=== PATIENT | male | born 1975 | race Caucasian/White ===

== ENCOUNTER 2020-08-23 18:00 | Emergency (ER) | payer MEDICAID ==
[~2020-08-23] VITALS: Ht 165.1 cm; Wt 81.6 kg
--- NOTE | 2020-08-23 18:00 | NUR ---
Patient BIBA ALS, transferred to bed 7. RN evaluating patient at bedside.
--- NOTE | 2020-08-23 18:05 | NUR ---
44 YO M BIBA FOR C/C OF 10 LAC TO R FOREARM X30 MIN. PT STATES HE WAS RUNNING FROM AN UNKNOWN DOG WHEN HIS ARM GOT CAUGHT ON AN UNKNOWN METAL OBJECT. ROM IN HAND INTACT, RADIAL PULSES ARE EQUAL AND REGULAR. PT UNSURE OF WHEN LAST TETNUS SHOT WAS. PT RECIEVED 100MCG OF FENTANYL IM IN ROUTE. BED LOCKED AND IN LOWEST POSITION, SIDE RAILS X2. MED HX: DENIES RX: DENIES NKA
[2020-08-23 18:07] VITALS: BP 151/104
[2020-08-23] MEDS ORDERED: MORPHINE SULFATE 4 MG/ML SYR ONE (18:17)
[2020-08-23] MEDS ORDERED: MORPHINE SULFATE 4 MG/ML SYR IM ONE (18:20)
[2020-08-23] MEDS ORDERED: BACITRACIN OINT 500 UNITS/GM PKT TP ONE ×2 (18:25→19:36)
[2020-08-23] MEDS ORDERED: LIDOCAINE/EPI 1% 1:100000 20 ML VIAL INJ ONE (18:30)
--- NOTE | 2020-08-23 19:00 | NUR ---
T VILMA OBTAINED FOR PT. INFORMATION STATEMENT GIVEN.
--- NOTE | 2020-08-23 19:07 | NUR ---
LIDOCAINE AND BACITRACIN AT BEDSIDE FOR LAC REPAIR
--- NOTE | 2020-08-23 19:07 | NUR ---
PTS PAIN IS NOW 5/10 POST IM MORPHINE
--- NOTE | 2020-08-23 19:18 | NUR ---
REPORT GIVEN TO ONUR PERKINS. TRANSFER OF CARE AT THIS TIME.
--- NOTE | 2020-08-23 19:18 | NUR ---
RECEIVED REPORT FROM ONUR BURK. TRANSFER OF CARE AT THIS TIME.
--- NOTE | 2020-08-23 19:46 | NUR ---
RAD AT BEDSIDE
--- NOTE | 2020-08-23 19:47 | NUR ---
Viky ramirez in ED - 08/23/20 at 1947 by [email or web address] XINAY AT BEDSIDE
--- NOTE | 2020-08-23 20:20 | NUR ---
BACITRACIN WAS PLACED ON PTS RIGHT ARM WOUND, NON ADHERRNT GAUZE PLACED TO COVER WOUND AND NON ADHERENT GAUZE TO WRAP.
[2020-08-23 21:36] VITALS: BP 151/104
--- NOTE | 2020-08-23 21:36 | NUR ---
Patient discharged with v/s stable. Written and verbal after care instructions given and explained. Patient verbalized understanding. Ambulatory with steady gait. All questions addressed prior to discharge. Advised to follow up with PMD.
== END 2020-08-23 20:30 | disposition home or self-care (01) ==
LOC: MED 18:00
DX: S51.811A Laceration without foreign body of right forearm, initial encounter (principal); X58.XXXA Exposure to other specified factors, initial encounter; Y93.02 Activity, running; Y92.89 Other specified places as the place of occurrence of the external cause; Y99.8 Other external cause status
CPT/HCPCS: 12034; 73090; 90471; 90715; 96372; 99284; J2001; J2270

== ENCOUNTER 2020-08-31 16:12 | Emergency (ER) | payer MEDICAID ==
[~2020-08-31] VITALS: Ht 170.2 cm; Wt 84.4 kg
[2020-08-31 16:19] VITALS: BP 144/78
[2020-08-31 16:45] VITALS: BP 144/78
--- NOTE | 2020-08-31 16:45 | NUR ---
Patient assessed by LADI Almanza, no nursing interventions performed.
--- NOTE | 2020-08-31 16:45 | NUR ---
Patient discharged with v/s stable. Written and verbal after care instructions given and explained. Patient verbalized understanding. Ambulatory with steady gait. All questions addressed prior to discharge. Advised to follow up with PMD. Patient advised to return in 3 days for removal of sutures
== END 2020-08-31 16:45 | disposition home or self-care (01) ==
LOC: MED 16:12
DX: S51.811D Laceration without foreign body of right forearm, subsequent encounter (principal); X58.XXXD Exposure to other specified factors, subsequent encounter
CPT/HCPCS: 99281

== ENCOUNTER 2020-09-03 16:51 | Emergency (ER) | payer MEDICAID ==
[~2020-09-03] VITALS: Ht 170.2 cm; Wt 83.0 kg
[2020-09-03 17:24] VITALS: BP 139/79
--- NOTE | 2020-09-03 17:51 | NUR ---
44 y/o male from home presents to ED for suture removal to right forearm placed 10 days ago. Patient denies pain, skin warm, dry, intact. VSS
--- NOTE | 2020-09-03 17:52 | NUR ---
LADI Almanza at chairside examining patient
[2020-09-03 18:03] VITALS: BP 139/79
== END 2020-09-03 18:03 | disposition home or self-care (01) ==
LOC: MED 16:51
DX: S51.811D Laceration without foreign body of right forearm, subsequent encounter (principal); X58.XXXD Exposure to other specified factors, subsequent encounter
CPT/HCPCS: 99281

== ENCOUNTER 2024-02-19 09:44 | Emergency (ER) | payer SELFPAY ==
[~2024-02-19] VITALS: Ht 167.6 cm; Wt 81.6 kg
[2024-02-19 09:53] VITALS: BP 146/85; PULSE 94; RESP 18; TEMP 97.1; O2SAT 99
[2024-02-19] MEDS: NACL 0.9% 1,000 ML IV ONE (10:59)
[2024-02-19 11:11] LABS: BASOPHILS # (AUTO) 0.1 K/uL (0.00-0.22); BASOPHILS % (AUTO) 1.3 % (0.0-2.0); EOSINOPHILS % (AUTO) 0.7 % (0.0-4.0); HEMATOCRIT 43.1 % (36-52); LYMPHOCYTES # (AUTO) 1.5 K/uL (2.0-11.5); LYMPHOCYTES % (AUTO) 35.9 % (20.5-51.1); MEAN CORPUSCULAR HEMOGLOBIN 34 pg (27-31); MEAN CORPUSCULAR HGB CONC 35 g/dL (33-37); MEAN CORPUSCULAR VOLUME 97.2 fL (80-94); MONOCYTES # (AUTO) 0.4 K/uL (0.8-1.0); NEUTROPHILS # (AUTO) 2.2 K/uL (1.8-7.7); NEUTROPHILS % (AUTO) 53.1 % (42.2-75.2); PLATELET COUNT (AUTO) 247 K/uL (140-450); RED BLOOD CELL COUNT(AUTO) 4.43 MIL/uL (4.20-6.10); WHITE BLOOD COUNT (AUTO) 4.1 K/uL (4.8-10.8)
[2024-02-19 11:23] LABS: ANION GAP 11.1 (8-16); CALCIUM 8.7 mg/dL (8.5-10.1); CARBON DIOXIDE 29.4 mmol/L (21-32); CREATININE 0.9 mg/dL (0.6-1.3); POTASSIUM 4.5 mmol/L (3.5-5.1)
[2024-02-19 13:16] VITALS: BP 116/76; PULSE 85; RESP 16; TEMP 97.1; O2SAT 97
== END 2024-02-19 13:15 | disposition home or self-care (01) ==
LOC: MED 09:44
DX: E86.0 Dehydration (principal); R42 Dizziness and giddiness; E78.5 Hyperlipidemia, unspecified; Z71.6 Tobacco abuse counseling
CPT/HCPCS: 36415; 80048; 84484; 85025; 93005; 96360; 99285; J7030